=== PATIENT | female | born 1945 | race Caucasian/White ===

== ENCOUNTER 2018-08-10 07:57 | Inpatient (IN) | payer MEDICARE ==
[2018-08-10] VITALS (11 sets, daily range): BP systolic 97–124; BP diastolic 54–75
[~2018-08-10] VITALS: Ht 154.9 cm; Wt 57.9 kg
--- NOTE | ~2018-08-10 | EKG ---
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
--- NOTE | ~2018-08-10 | CON ---
[place], [place] REPORT OF CONSULTATION NAME: LUIS F LEO UNIT #: [id number] ROOM: 424 DOCTOR: MESHA MCDONNELL MD BIRTHDATE: [birth year] DOS: 08/10/2018 CARDIOLOGY CONSULTATION REASON FOR CONSULTATION: Chest discomfort and rapid heartbeat. HISTORY OF PRESENT ILLNESS: The patient is a 73-year-old woman who has not seen a physician in some time. She was in her normal state of health until about a week ago when she developed a viral syndrome. She was troubled by muscle aches, fevers, chills, cough, and dyspnea. This improved, but over the last few days, she has noticed swelling in her ankles. Last evening, she had chest discomfort associated with a racing sensation in her chest. Family members found out about it early this morning and brought her to the hospital. She was found to be in atrial fibrillation with a rapid ventricular response. She was placed on Lovenox for stroke prophylaxis as well as diltiazem for rate control, admitted, and Cardiology was consulted. The patient denies any history of hypertension, diabetes, heart attack, stroke, or rheumatic fever. She has never had a heart murmur. She does admit to dyspnea with exertion and symptoms of emphysema. She is a long-term smoker and continues to smoke about 1 pack of cigarettes a day. PAST MEDICAL HISTORY: Includes: 1. Long-term and ongoing cigarette abuse. 2. COPD. 3. No history of hypertension, diabetes, heart attack, or stroke. MEDICATIONS PRIOR TO ADMISSION: The patient was on no prescribed medications prior to admission. She does use an occasional albuterol inhaler. ALLERGIES: SHE LISTS ALLERGIES TO PENICILLINS AND DIAZEPAM. REVIEW OF SYSTEMS: The patient denies diplopia or loss of vision. She denies lightheadedness or syncope. She denies focal weakness. She denies orthopnea or PND. She has had fevers and chills lately, which she attributed to a viral syndrome. She denies nausea or vomiting, but she did have some nausea last week. She denies hemoptysis or hematemesis. She denies change in her bowel or bladder habits. Denies blood in her stools or urine. She has had swelling in her legs for the last few days. She denies cramping in her legs when she walks. She denies polyuria or polydipsia. The remainder of the review of systems is negative except as noted above. SOCIAL HISTORY: The patient is a . She lives alone with her 4 dogs. She does smoke a pack of cigarettes a day and does not consume excessive amounts of alcohol. PHYSICAL EXAMINATION: GENERAL: The patient is a well-nourished white woman who is awake, alert and oriented. VITAL SIGNS: Pulse is 80 and irregularly irregular. Blood pressure is 122/70. [place], [place] REPORT OF CONSULTATION NAME: LUIS F LEO UNIT #: [id number] ROOM: 424 DOCTOR: MESHA MCDONNELL MD BIRTHDATE: [birth year] She is afebrile. She weighs 57.9 kg and has a body mass index of 24.1. HEENT: Normocephalic and atraumatic. Extraocular muscles are intact. Sclerae are clear. Pupils equal, round and reactive to light. The oral mucosa is moist. Tongue is midline. NECK: Supple. She has no jugular distention. Carotids are full. She has no bruits. She has no neck or supraclavicular masses and no thyromegaly. LUNGS: Respirations were unlabored. She does have decreased breath sounds at the bases with expiratory prolongation bilaterally. She has no presacral edema or chest wall tenderness. CARDIOVASCULAR: Her heart has an irregularly irregular rhythm without murmurs, rubs or gallops. The PMI is not displaced. There is no precordial heave, lift, or thrill. ABDOMEN: Soft and normoactive. She has no mass, organomegaly, or bruits. EXTREMITIES: Showed no clubbing, cyanosis, or edema. Peripheral pulses are palpable in the feet bilaterally. LABORATORY DATA: I reviewed her electrocardiogram, which shows atrial fibrillation with a rapid ventricular response. She has nonspecific ST and T-wave changes, but no acute ST elevations. Serial troponins have been negative thus far. Hemoglobin is 12.5, white count is 9700, platelet count is 282,000. INR is 1.0. Sodium is 142, potassium 3.5, CO2 of 25, BUN 9, and creatinine 0.73. IMPRESSIONS: 1. Newly documented atrial fibrillation. It is likely that her chest discomfort is due to the tachycardia. Thus far, she shows no signs of an acute myocardial infarction by electrocardiographic or chemical criteria. 2. Long-term and ongoing cigarette abuse. 3. Diastolic heart failure with peripheral edema, probably brought on by her newly documented atrial fibrillation. PLAN: We will switch her from Lovenox to rivaroxaban and switch her from IV diltiazem to oral diltiazem. I will be getting an echocardiogram. We might consider doing a pharmacologic stress test next week, especially given her presenting chest pain. If her echo looks good, this might be done as an outpatient. Further recommendations will depend upon her response to therapy and the results of her studies. I thank the hospitalist physicians for asking our advice regarding her care. [place], [place] REPORT OF CONSULTATION NAME: LUIS F LEO UNIT #: [id number] ROOM: [facility] DOCTOR: MESHA MCDONNELL MD BIRTHDATE: [birth year] MESHA MCDONNELL MD CM:CONSTR:REPORT OF CONSULTATION 1123 08/10/18 2212 interface
--- NOTE | ~2018-08-10 | ST ---
[place], [place] EXERCISE STRESS TEST REPORT NAME: LUIS F LEO UNIT #: [id number] ROOM: 424 DOCTOR: ADE SAENZ MD BIRTHDATE: [birth year] DOS: 08/13/2018 LEXISCAN STRESS EKG REFERRING PHYSICIAN: Dr. Sánchez. INDICATION: Precordial chest pain. The patient underwent standard protocol Lexiscan stress EKG. The patient's baseline EKG is atrial fibrillation with a heart rate of 106 with blood pressure 122/62. The patient's peak heart rate was 138 with a blood pressure of 110/66. The patient had no chest pain, no EKG changes, no arrhythmias aside from her baseline AFib. SUMMARY OF FINDINGS: Unremarkable Lexiscan stress EKG. Please see separate report for perfusion scan results. ADE SAENZ MD CM:STRESS:EXERCISE STRESS TEST REPORT [id number] ADE SAENZ MD
[~2018-08-10 07:57] MED LIST: CLARITIN10 MG PO; EPI EZ PEN1 MG/ML IM; KEFLEX500 MG PO; LEVOFLOXACIN500 MG PO; MOTRIN800 MG PO
[2018-08-10 08:25] LABS: BASO % 0.1 % (0.0-1.0); HEMATOCRIT 37.5 % (37.0-47.0); HEMOGLOBIN 12.5 g/dl (12.0-16.0); LYMPH # 0.9 10*3/uL (1.3-4.4); LYMPH % 8.9 % (27.0-41.0); MEAN CELL VOLUME 101.1 fl (81.0-99.0); MEAN CORPUSCULAR HGB 33.7 pg (27.0-31.0); MEAN CORPUSCULAR HGB CONC 33.3 g/dl (33.0-37.0); MEAN PLATELET VOLUME 9.5 fl (9.6-12.3); MONO # 0.4 10*3/uL (0.1-1.0); NEUT # 8.3 10*3/uL (2.3-7.9); NEUT % 85.7 % (47.0-73.0); PLATELET COUNT AUTOMATED 282 10*3/uL (130-400); RED BLOOD COUNT 3.71 10*6/uL (4.10-5.10); RED CELL DISTRI WIDTH 12.9 % (0-14.5); WHITE BLOOD COUNT 9.7 10*3/uL (4.8-10.8)
[2018-08-10 08:34] LABS: ACT PARTIAL THROMBO TIME 21.5 SECONDS (20.8-31.5)
[2018-08-10 08:40] LABS: ALBUMIN 3.2 gm/dl (3.1-4.5); ALKALINE PHOSPHATASE 101 U/L (45-117); BUN 9 mg/dl (7-24); CHLORIDE 109 mmol/L (98-107); CREATININE 0.73 mg/dL (0.55-1.02); LIPASE 109 U/L (73-393); POTASSIUM 3.5 mmol/L (3.5-5.1); SGOT/AST 37 IU/L (3-35); SGPT/ALT 66 U/L (12-78); SODIUM 142 mmol/L (136-145); TOTAL PROTEIN 6.8 gm/dL (6.4-8.2)
[2018-08-10 08:42] LABS: TROPONIN I < 0.015 ng/ml (<0.045)
[2018-08-10 09:59] LABS: FREE T4 1.09 ng/dl (0.76-1.46)
[2018-08-10 10:04] LABS: THYROID STIM HORMONE (HS) 0.707 uIU/ml (0.358-4.75)
[2018-08-10] MEDS ORDERED: Ventolin 02.5 MG/3 M INH (10:35)
[2018-08-11] VITALS (10 sets, daily range): BP systolic 90–116; BP diastolic 38–94
[2018-08-11 06:17] LABS: BASO % 0.3 % (0.0-1.0); EOS # 0.1 10*3/uL (0.0-0.4); EOS % 0.8 % (1.0-4.0); HEMATOCRIT 35.7 % (37.0-47.0); HEMOGLOBIN 11.5 g/dl (12.0-16.0); LYMPH # 2.3 10*3/uL (1.3-4.4); LYMPH % 25.1 % (27.0-41.0); MEAN CELL VOLUME 102.6 fl (81.0-99.0); MEAN CORPUSCULAR HGB CONC 32.2 g/dl (33.0-37.0); MEAN PLATELET VOLUME 9.6 fl (9.6-12.3); MONO # 0.7 10*3/uL (0.1-1.0); MONO % 7.5 % (3.0-9.0); NEUT % 65.8 % (47.0-73.0); PLATELET COUNT AUTOMATED 251 10*3/uL (130-400); RED BLOOD COUNT 3.48 10*6/uL (4.10-5.10); RED CELL DISTRI WIDTH 13.2 % (0-14.5); WHITE BLOOD COUNT 9.1 10*3/uL (4.8-10.8)
[2018-08-11 06:39] LABS: ALBUMIN 2.6 gm/dl (3.1-4.5); ALKALINE PHOSPHATASE 86 U/L (45-117); BUN 11 mg/dl (7-24); CHLORIDE 111 mmol/L (98-107); CHOLESTEROL 130 mg/dL (<200); CREATININE 0.62 mg/dL (0.55-1.02); HDL CHOLESTEROL 57 mg/dl (40-60); LDL CHOLESTEROL 54 mg/dL (9-159); PHOSPHOROUS 2.4 mg/dL (2.5-4.9); POTASSIUM 3.7 mmol/L (3.5-5.1); SGOT/AST 30 IU/L (3-35); SGPT/ALT 58 U/L (12-78); SODIUM 145 mmol/L (136-145); TOTAL PROTEIN 5.8 gm/dL (6.4-8.2); TRIGLYCERIDES 94 mg/dl (<150); VLDL CHOLESTEROL 19 mg/dL (6-40)
[2018-08-11 08:00] LABS: VITAMIN D, 25-HYDROXY 19.7 ng/mL (30-100)
[2018-08-11 13:20] LABS: BILIRUBIN NEGATIVE (NEGATIVE); BLOOD NEGATIVE (NEGATIVE); CLARITY CLEAR (CLEAR); COLOR YELLOW (YELLOW); GLUCOSE NEGATIVE (NEGATIVE); KETONE NEGATIVE (NEGATIVE); LEUKO ESTERASE NEGATIVE (NEGATIVE); NITRITE NEGATIVE (NEGATIVE); PH 7.5 (5.0-9.0); SPECIFIC GRAVITY <= 1.005 (1.005-1.030); UROBILINOGEN 0.2 E.U./dl (0.2-1.0)
[2018-08-12] VITALS: BP 94/51
[2018-08-12 06:08] LABS: BASO % 0.3 % (0.0-1.0); EOS # 0.1 10*3/uL (0.0-0.4); EOS % 0.7 % (1.0-4.0); HEMATOCRIT 36.7 % (37.0-47.0); HEMOGLOBIN 11.9 g/dl (12.0-16.0); LYMPH # 2.4 10*3/uL (1.3-4.4); LYMPH % 24.8 % (27.0-41.0); MEAN CORPUSCULAR HGB 33.7 pg (27.0-31.0); MEAN CORPUSCULAR HGB CONC 32.4 g/dl (33.0-37.0); MONO # 0.8 10*3/uL (0.1-1.0); MONO % 8.4 % (3.0-9.0); NEUT # 6.4 10*3/uL (2.3-7.9); NEUT % 65.3 % (47.0-73.0); PLATELET COUNT AUTOMATED 248 10*3/uL (130-400); RED BLOOD COUNT 3.53 10*6/uL (4.10-5.10); RED CELL DISTRI WIDTH 13.3 % (0-14.5); WHITE BLOOD COUNT 9.8 10*3/uL (4.8-10.8)
[2018-08-12 06:12] LABS: BUN 10 mg/dl (7-24); CHLORIDE 109 mmol/L (98-107); CREATININE 0.71 mg/dL (0.55-1.02); PHOSPHOROUS 3.1 mg/dL (2.5-4.9); POTASSIUM 3.9 mmol/L (3.5-5.1); SODIUM 142 mmol/L (136-145)
[2018-08-12 12:00] VITALS: BP 100/57
[2018-08-12 14:00] VITALS: BP 102/56
[2018-08-12 16:00] VITALS: BP 109/49
[2018-08-12 20:00] VITALS: BP 102/62
[2018-08-13] VITALS: BP 107/68
[2018-08-13 06:34] LABS: BASO % 0.5 % (0.0-1.0); EOS # 0.1 10*3/uL (0.0-0.4); EOS % 0.9 % (1.0-4.0); HEMOGLOBIN 11.9 g/dl (12.0-16.0); LYMPH # 2.2 10*3/uL (1.3-4.4); LYMPH % 26.3 % (27.0-41.0); MEAN CELL VOLUME 103.1 fl (81.0-99.0); MEAN CORPUSCULAR HGB 33.1 pg (27.0-31.0); MEAN CORPUSCULAR HGB CONC 32.2 g/dl (33.0-37.0); MONO # 0.7 10*3/uL (0.1-1.0); MONO % 8.7 % (3.0-9.0); NEUT # 5.4 10*3/uL (2.3-7.9); PLATELET COUNT AUTOMATED 252 10*3/uL (130-400); RED BLOOD COUNT 3.59 10*6/uL (4.10-5.10); RED CELL DISTRI WIDTH 13.2 % (0-14.5); WHITE BLOOD COUNT 8.5 10*3/uL (4.8-10.8)
[2018-08-13 06:54] LABS: BUN 15 mg/dl (7-24); CHLORIDE 111 mmol/L (98-107); CREATININE 0.74 mg/dL (0.55-1.02); POTASSIUM 3.9 mmol/L (3.5-5.1); SODIUM 144 mmol/L (136-145)
[2018-08-13 08:00] VITALS: BP 110/74
[2018-08-13 16:00] VITALS: BP 86/52
[2018-08-13] MEDS ORDERED: TOPROL XL50 M1 PO (16:32)
[2018-08-13] MEDS ORDERED: DILTIAZEM HYDR180 M2 PO (16:32)
[2018-08-13] MEDS ORDERED: XARE20MG PO (16:32)
[2018-08-13] MEDS ORDERED: VITAMIN D5000 UNI1 PO (16:32)
== END 2018-08-13 17:28 | disposition home or self-care (01) | DRG 308 ==
LOC: ED 07:57 → 4E 09:19 → EDHOLD 09:19 → 4E 10:06
PROVIDERS: Emergency Medicine; Internal Medicine
PROC: 3E073KZ Introduction of Other Diagnostic Substance into Coronary Artery, Percutaneous Approach (ICD-10-PCS; principal; 2018-08-13)
PROC: 4A02XM4 Measurement of Cardiac Total Activity, External Approach (ICD-10-PCS; principal; 2018-08-13)
DX: I48.91 Unspecified atrial fibrillation (principal); E43 Unspecified severe protein-calorie malnutrition; R65.10 Systemic inflammatory response syndrome (SIRS) of non-infectious origin without acute organ dysfunction; E87.2 Acidosis; I50.30 Unspecified diastolic (congestive) heart failure; I48.92 Unspecified atrial flutter; I07.1 Rheumatic tricuspid insufficiency; I27.20 Pulmonary hypertension, unspecified; D75.89 Other specified diseases of blood and blood-forming organs; D72.810 Lymphocytopenia; Z66 Do not resuscitate; Z51.5 Encounter for palliative care; F17.210 Nicotine dependence, cigarettes, uncomplicated; D72.89 Other specified disorders of white blood cells; D53.9 Nutritional anemia, unspecified; E87.8 Other disorders of electrolyte and fluid balance, not elsewhere classified; E83.39 Other disorders of phosphorus metabolism; R73.9 Hyperglycemia, unspecified; E83.41 Hypermagnesemia; R74.0 Nonspecific elevation of levels of transaminase and lactic acid dehydrogenase [LDH]; J43.9 Emphysema, unspecified; Z90.49 Acquired absence of other specified parts of digestive tract; Z90.710 Acquired absence of both cervix and uterus; Z84.89 Family history of other specified conditions; Z88.0 Allergy status to penicillin; Z88.8 Allergy status to other drugs, medicaments and biological substances; Z68.24 Body mass index [BMI] 24.0-24.9, adult

== ENCOUNTER → 2018-08-31 | Outpatient (CLI) | payer MEDICARE ==
[~2018-08-31] MED LIST changes: +DILTIAZEM HYDR180 M2 PO; +TOPROL XL50 M1 PO; +VITAMIN D5000 UNI1 PO; +Ventolin 02.5 MG/3 M INH; +XARE20MG PO
== END | disposition home or self-care (01) ==
LOC: RESCLI 03:59
DX: Z09 Encounter for follow-up examination after completed treatment for conditions other than malignant neoplasm (principal); I48.91 Unspecified atrial fibrillation; J44.9 Chronic obstructive pulmonary disease, unspecified; E55.9 Vitamin D deficiency, unspecified; I50.30 Unspecified diastolic (congestive) heart failure; F17.210 Nicotine dependence, cigarettes, uncomplicated; Z71.6 Tobacco abuse counseling; Z76.89 Persons encountering health services in other specified circumstances; Z79.899 Other long term (current) drug therapy; Z90.49 Acquired absence of other specified parts of digestive tract; Z88.8 Allergy status to other drugs, medicaments and biological substances; Z90.710 Acquired absence of both cervix and uterus

== ENCOUNTER → 2018-09-18 | Outpatient (CLI) | payer MEDICARE ==
[2018-09-18 17:17] LABS: BUN 12 mg/dl (7-24); CHLORIDE 108 mmol/L (98-107); CREATININE 0.78 mg/dL (0.55-1.02); POTASSIUM 4.3 mmol/L (3.5-5.1); SODIUM 141 mmol/L (136-145)
== END | disposition home or self-care (01) ==
LOC: LAB 16:19
PROVIDERS: Student in an Organized Health Care Education/Training Program
DX: I50.30 Unspecified diastolic (congestive) heart failure (principal)

== ENCOUNTER → 2018-10-02 | Outpatient (CLI) | payer MEDICARE ==
[2018-10-02 11:39] LABS: BUN 12 mg/dl (7-24); CHLORIDE 107 mmol/L (98-107); POTASSIUM 4.1 mmol/L (3.5-5.1); SODIUM 142 mmol/L (136-145)
== END | disposition home or self-care (01) ==
LOC: RESCLI 01:52
PROVIDERS: Student in an Organized Health Care Education/Training Program
DX: I48.91 Unspecified atrial fibrillation (principal); J44.9 Chronic obstructive pulmonary disease, unspecified; E55.9 Vitamin D deficiency, unspecified; I50.30 Unspecified diastolic (congestive) heart failure; F17.200 Nicotine dependence, unspecified, uncomplicated; Z71.6 Tobacco abuse counseling; Z79.899 Other long term (current) drug therapy; Z79.82 Long term (current) use of aspirin; Z88.8 Allergy status to other drugs, medicaments and biological substances; Z90.49 Acquired absence of other specified parts of digestive tract; Z90.710 Acquired absence of both cervix and uterus

== ENCOUNTER → 2018-12-11 | Outpatient (CLI) | payer MEDICARE ==
[~2018-12-11] MED LIST changes: +AMMONIUM LACTA227 GM T; +ASPIRIN ADULT L81 M1 PO; +CARTIA XT120 MG PO; +DIGITEK125 MCG PO; +DOXYCYCLINE100 M3 PO; +FUROSEMIDE20 M1 PO; +KLOR-CON M1010 ME1 PO; +LEVAQUIN750 M1 PO; +METOPROLOL SUCC25 M2 PO; +PREDNISONE10 MG PO
== END | disposition home or self-care (01) ==
LOC: RESCLI 02:27
DX: Z09 Encounter for follow-up examination after completed treatment for conditions other than malignant neoplasm (principal); I48.91 Unspecified atrial fibrillation; J44.9 Chronic obstructive pulmonary disease, unspecified; E55.9 Vitamin D deficiency, unspecified; I50.30 Unspecified diastolic (congestive) heart failure; F17.200 Nicotine dependence, unspecified, uncomplicated; Z71.6 Tobacco abuse counseling; Z79.899 Other long term (current) drug therapy; Z88.8 Allergy status to other drugs, medicaments and biological substances; Z79.82 Long term (current) use of aspirin

== ENCOUNTER → 2018-12-21 | Outpatient (CLI) | payer MEDICARE | END | disposition home or self-care (01) | LOC: RESCLI 02:45 | DX: I48.91 Unspecified atrial fibrillation (principal); J44.9 Chronic obstructive pulmonary disease, unspecified; E55.9 Vitamin D deficiency, unspecified; I50.30 Unspecified diastolic (congestive) heart failure; Z72.0 Tobacco use; Z79.899 Other long term (current) drug therapy ==

== ENCOUNTER → 2019-01-03 | Outpatient (CLI) | payer MEDICARE | END | disposition home or self-care (01) | LOC: CT 09:49 | DX: J43.2 Centrilobular emphysema (principal); R91.8 Other nonspecific abnormal finding of lung field; I51.7 Cardiomegaly; I70.0 Atherosclerosis of aorta; I27.21 Secondary pulmonary arterial hypertension; N28.1 Cyst of kidney, acquired; J84.10 Pulmonary fibrosis, unspecified; D73.89 Other diseases of spleen ==

== ENCOUNTER → 2019-03-19 | Outpatient (CLI) | payer MEDICARE | END | disposition home or self-care (01) | LOC: RESCLI 13:57 | DX: J44.9 Chronic obstructive pulmonary disease, unspecified (principal); E55.9 Vitamin D deficiency, unspecified; I48.91 Unspecified atrial fibrillation; I50.30 Unspecified diastolic (congestive) heart failure; E11.9 Type 2 diabetes mellitus without complications; Z71.6 Tobacco abuse counseling; Z87.891 Personal history of nicotine dependence; Z79.899 Other long term (current) drug therapy ==

== ENCOUNTER → 2019-03-29 | Outpatient (CLI) | payer MEDICARE ==
[2019-03-29 12:13] LABS: ALBUMIN 3.1 gm/dl (3.1-4.5); ALKALINE PHOSPHATASE 161 U/L (45-117); BUN 17 mg/dl (7-24); CHLORIDE 102 mmol/L (98-107); CREATININE 0.82 mg/dL (0.55-1.02); POTASSIUM 3.6 mmol/L (3.5-5.1); SGOT/AST 20 IU/L (3-35); SGPT/ALT 21 U/L (12-78); SODIUM 137 mmol/L (136-145); TOTAL PROTEIN 7.3 gm/dL (6.4-8.2)
[2019-04-03 09:50] LABS: CREATININE,URINE 78.1 mg/dL (Not Estab.); MICRO ALBUMIN/CRE RATIO 24.5 (0.0-30.0)
== END | disposition home or self-care (01) ==
LOC: RESCLI 02:03 → LAB 02:03 → RESCLI 08:40
PROVIDERS: Internal Medicine; Student in an Organized Health Care Education/Training Program
DX: E11.9 Type 2 diabetes mellitus without complications (principal)

== ENCOUNTER → 2019-05-16 | Outpatient (CLI) | payer MEDICARE ==
[2019-05-16 16:37] LABS: ALBUMIN 3.4 gm/dl (3.1-4.5); ALKALINE PHOSPHATASE 136 U/L (45-117); BUN 16 mg/dl (7-24); CHLORIDE 101 mmol/L (98-107); PHOSPHOROUS 5.1 mg/dL (2.5-4.9); POTASSIUM 4.2 mmol/L (3.5-5.1); SGOT/AST 12 IU/L (3-35); SGPT/ALT 17 U/L (12-78); SODIUM 137 mmol/L (136-145); TOTAL PROTEIN 7.5 gm/dL (6.4-8.2)
== END | disposition home or self-care (01) ==
LOC: RESCLI 01:47
PROVIDERS: Internal Medicine
DX: Z12.11 Encounter for screening for malignant neoplasm of colon (principal); I48.91 Unspecified atrial fibrillation; J44.9 Chronic obstructive pulmonary disease, unspecified; E55.9 Vitamin D deficiency, unspecified; I50.30 Unspecified diastolic (congestive) heart failure; E11.9 Type 2 diabetes mellitus without complications; Z71.6 Tobacco abuse counseling; Z72.0 Tobacco use; Z79.899 Other long term (current) drug therapy; Z88.8 Allergy status to other drugs, medicaments and biological substances

== ENCOUNTER 2019-06-15 23:20 | Inpatient (IN) | payer MEDICARE ==
[~2019-06-15] VITALS: Ht 154.9 cm; Wt 47.7 kg
[2019-06-15 23:20] VITALS: BP 107/38
[2019-06-16] VITALS (16 sets, daily range): BP systolic 92–106; BP diastolic 28–56
[2019-06-16 00:13] LABS: HEMATOCRIT 22.5 % (37.0-47.0); MEAN CELL VOLUME 73.8 fl (81.0-99.0); MEAN CORPUSCULAR HGB 20.3 pg (27.0-31.0); MEAN CORPUSCULAR HGB CONC 27.6 g/dl (33.0-37.0); MEAN PLATELET VOLUME 9.7 fl (9.6-12.3); PLATELET COUNT AUTOMATED 272 10*3/uL (130-400); RED BLOOD COUNT 3.05 10*6/uL (4.10-5.10); RED CELL DISTRI WIDTH 17.1 % (0-14.5); WHITE BLOOD COUNT 12.1 10*3/uL (4.8-10.8)
[2019-06-16 00:22] LABS: HEMOGLOBIN 6.2 g/dl (12.0-16.0)
--- NOTE | 2019-06-16 00:23 | NUR ---
CRITICAL LAB RECEIVED FROM LAB HEMOGLOBIN 6.2, QUESTIONED DOCUMENTS EXAMINER MADE AWARE
[2019-06-16 00:27] LABS: INTERNATIONAL NORM RATIO 1.2 (2.0-3.5)
[2019-06-16 00:43] LABS: BASOPHILS 1 % (0-1); MICROCYTOSIS MODERATE; PLATELET SUFFICIENCY NORMAL (NORMAL); TOTAL CELLS COUNTED 100 #CELLS
[2019-06-16 01:16] LABS: ALBUMIN 3.3 gm/dl (3.1-4.5); ALKALINE PHOSPHATASE 129 U/L (45-117); BUN 15 mg/dl (7-24); CHLORIDE 100 mmol/L (98-107); CREATININE 0.79 mg/dL (0.55-1.02); POTASSIUM 3.8 mmol/L (3.5-5.1); SGOT/AST 12 IU/L (3-35); SGPT/ALT 14 U/L (12-78); SODIUM 133 mmol/L (136-145); TOTAL PROTEIN 7.3 gm/dL (6.4-8.2)
--- NOTE | 2019-06-16 01:55 | NUR ---
POSITIVE HEMACULT TEST FROM STOOL SPECIMAN
--- NOTE | 2019-06-16 02:40 | NUR ---
A 74, admitted to , under the services of TAWANNA Barillas DO with a diagnosis of GI BLEED,DYSPNEA. Chief complaint is SWELLING AND PAIN TO LEFT FOOT. Patient arrived via bed from ER. Monitor applied. Initial assessment completed. Vital signs taken and recorded. TAWANNA BARILLAS DO notified of admission to the unit. Orders received. See assessment for past medical history, medications and allergies. Patient and/or family oriented to unit. [facility] visitation policy reviewed. Clothing/patient valuable form completed. MITCHELL CASE
[2019-06-16] MEDS ORDERED: CARDIZEM CD180 MG PO (02:57)
[2019-06-16] MEDS ORDERED: GLUCOPHAGE500 M1 PO (02:57)
[2019-06-16] MEDS ORDERED: ALDACTONE25 MG PO (02:58)
--- NOTE | 2019-06-16 03:30 | NUR ---
BLOOD TRANSFUSION INITIATED AT THIS TIME. ALL APPROPRIATE CHECKS HAVE TAKEN PLACE AND WITNESSED BY SECOND RN. PT IV SITE TO LEFT ANTECUBITAL FLUSHING WITH EASE, GOOD BLOOD RETURN. DRESSING C/D/I.
--- NOTE | 2019-06-16 04:06 | NUR ---
PT TOLERATING TRANSFUSION WELL, NO COMPLAINTS VOICED. VITALS WNL FOR PATIENT.
--- NOTE | 2019-06-16 04:15 | NUR ---
MED REC UPDATED PER PT AND PER PATIENT'S HOME MEDICATION BOTTLES.
[2019-06-16 05:27] LABS: BILIRUBIN NEGATIVE (NEGATIVE); BLOOD 1+ (NEGATIVE); CLARITY SL CLOUDY (CLEAR); COLOR YELLOW (YELLOW); GLUCOSE NEGATIVE (NEGATIVE); KETONE NEGATIVE (NEGATIVE); LEUKO ESTERASE 3+ (NEGATIVE); NITRITE POSITIVE (NEGATIVE); UROBILINOGEN 0.2 E.U./dl (0.2-1.0)
[2019-06-16 05:40] LABS: WBC TNTC wbc/hpf (0-5)
[2019-06-16 05:41] LABS: BACTERIA 4+; RBC 21-30 rbc/hpf (0-2)
--- NOTE | 2019-06-16 06:31 | NUR ---
BLOOD TRANSFUSION COMPLETE AT THIS TIME. PT RESTING IN BED. EASILY AROUSED. RESPIRATIONS EASY AND UNALBORED ON ROOM AIR. VITALS OBTAINED AND WNL. NO S/S OF REACTIONS NOTED. PT COMPLAINS OF NOTHING. ALL SAFETY MEASURES IN PLACE. CALL LIGHT IN REACH.
--- NOTE | 2019-06-16 07:00 | NUR ---
BEDSIDE REPORT RECEIVED FROM MITCHELL WONG. NO PT COMPLAINTS/CONCERNS AT THIS TIME. BED LOW. CALL TRUONG IN REACH
--- NOTE | 2019-06-16 07:42 | NUR ---
SPOKE WITH DR SMALLWOOD REGARDING CONSULT. PHYSICIAN STATES THAT HE WILL SEE PATIENT SOMETIME THIS AFTERNOON. ORDERS RECEIVED TO PUT PATIENT ON CLEAR LIQUID DIET AND TO GIVE AN ADDITIONAL UNIT OF BLOOD IF NEXT HEMOGLOBIN THAT IS DRAWN IS LESS THAN 8. PHYSICIAN STATES THAT HE PLANS TO SCOPE PATIENT, BUT NOT TODAY. PHYSICIAN STATES THAT HE WILL PLACE BOWEL PREP ORDERS IN WHEN HE COMES IN TO SEE PATIENT. WILL UPDATE AM NURSE.
[2019-06-16 08:43] LABS: BASO % 0.2 % (0.0-1.0); EOS % 0.4 % (1.0-4.0); HEMATOCRIT 25.7 % (37.0-47.0); HEMOGLOBIN 7.4 g/dl (12.0-16.0); LYMPH # 1.4 10*3/uL (1.3-4.4); LYMPH % 13.9 % (27.0-41.0); MEAN CELL VOLUME 75.1 fl (81.0-99.0); MEAN CORPUSCULAR HGB 21.6 pg (27.0-31.0); MEAN CORPUSCULAR HGB CONC 28.8 g/dl (33.0-37.0); MEAN PLATELET VOLUME 9.1 fl (9.6-12.3); MONO # 1.2 10*3/uL (0.1-1.0); MONO % 11.6 % (3.0-9.0); NEUT # 7.4 10*3/uL (2.3-7.9); NEUT % 73.4 % (47.0-73.0); PLATELET COUNT AUTOMATED 213 10*3/uL (130-400); RED BLOOD COUNT 3.42 10*6/uL (4.10-5.10); WHITE BLOOD COUNT 10.1 10*3/uL (4.8-10.8)
--- NOTE | 2019-06-16 11:00 | NUR ---
PT AWAKE. BLOOD TRANSFUSION INITIATED. PT RECEIVING 2ND UNIT OF PRBC. VITALS WNL.
--- NOTE | 2019-06-16 12:55 | NUR ---
BLOOD TRANSFUSION COMPLETED AT THIS TIME. PATIENT HAS NO COMPLAINTS.
--- NOTE | 2019-06-16 16:25 | NUR ---
INFORMED OF MANUAL BP 92/28, PATIENT ASYMPTOMATIC STATING "IM USE TO IT". INFORMED OF MEDICATIONS THAT WERE GIVEN THIS AM AND WHAT IS DUE TONIGHT. STATED TO RE-EVALUATE BEFORE NIGHT TIME DOSE OF TOPROL.
--- NOTE | 2019-06-16 16:35 | NUR ---
CALLED BACK AND STATED TO RECHECK BP IN 10 MINUTES
[2019-06-16 16:43] LABS: HEMATOCRIT 30.5 % (37.0-47.0); HEMOGLOBIN 9.2 g/dl (12.0-16.0)
--- NOTE | 2019-06-16 16:45 | NUR ---
INFORMED THAT PATIENT BP 96/30 MANUAL. PATIENT IS STILL ASYMPTOMATIC, STATES " TWO DAYS AGO AT HOME MY BLOOD PRESSURE WAS 78/44 AND THATS WHEN I STARTED TO GET DIZZY. I DON'T FEEL ANYTHING LIKE THAT NOW." DR STATED OK.
--- NOTE | 2019-06-16 17:53 | NUR ---
AVAILABLE AT THIS TIME. MADE AWARE OF POSITIVE ORTHOS. STATED OK.
--- NOTE | 2019-06-16 20:55 | NUR ---
NIGHT TIME DOSE OF TOPROL WILL BE HELD D/T LOW BLOOD PRESSURE.
--- NOTE | 2019-06-16 23:00 | NUR ---
REPORT RECEIVED FROM DAYLIGHT NURSE. PT SLEEPING AT THIS TIME. NO SIGNS OF DISTRESS. CALL LIGHT IN REACH.
--- NOTE | 2019-06-16 23:50 | NUR ---
24 HR chart check completed.
[2019-06-17] VITALS (7 sets, daily range): BP systolic 103–111; BP diastolic 49–60
--- NOTE | 2019-06-17 | NUR ---
PT MEDICATED WITH TYLENOL FOR COMPLAINTS OF 9/10 HEADACHE. PT REFUSING ORTHOS AT THIS TIME. PT STATES "MAYBE LATER"
--- NOTE | 2019-06-17 01:00 | NUR ---
PER PT, TYLENOL EFFECTIVE
[2019-06-17 05:43] LABS: BUN 7 mg/dl (7-24); CHLORIDE 104 mmol/L (98-107); CREATININE 0.52 mg/dL (0.55-1.02); PHOSPHOROUS 2.6 mg/dL (2.5-4.9); POTASSIUM 3.3 mmol/L (3.5-5.1); SODIUM 138 mmol/L (136-145)
[2019-06-17 06:06] LABS: HEMATOCRIT 31.2 % (37.0-47.0); HEMOGLOBIN 9.3 g/dl (12.0-16.0); MEAN CELL VOLUME 76.1 fl (81.0-99.0); MEAN CORPUSCULAR HGB 22.7 pg (27.0-31.0); MEAN CORPUSCULAR HGB CONC 29.8 g/dl (33.0-37.0); MEAN PLATELET VOLUME 9.7 fl (9.6-12.3); PLATELET COUNT AUTOMATED 236 10*3/uL (130-400); RED CELL DISTRI WIDTH 17.7 % (0-14.5)
--- NOTE | 2019-06-17 06:21 | NUR ---
HOLD K-DUR UNTIL AFTER EGD PER DR. PISANO.
[2019-06-17 06:54] LABS: BASOPHILS 1 % (0-1); PLATELET SUFFICIENCY NORMAL (NORMAL); POLYCHROMASIA SLIGHT; TOTAL CELLS COUNTED 100 #CELLS
[2019-06-17 06:55] LABS: ACANTHOCYTES FEW; MICROCYTOSIS MODERATE; OVALOCYTES FEW; SCHISTOCYTES FEW; TARGET CELLS FEW
--- NOTE | 2019-06-17 07:59 | NUR ---
PT LEAVES FLOOR FOR EGD, DAUGHTER CALLED AND NOTIFIED.
--- NOTE | 2019-06-17 09:00 | NUR ---
case management attempted to visit with patient, patient out of room for testing, will visit later today
--- NOTE | 2019-06-17 23:30 | NUR ---
PATIENT WATCHING TV IN BED. PATIENT STILL HAVING BROWN BM WITH SMALL AMOUNT OF FORMED STOOL. EDUCATED PATIENT WE WOULD BE MONITORING BM OVER NIGHT AND IF THEY DO NOT START TO CLEAR WE MAY HAVE TO CALL THE DOCTOR FOR ENEMAS. PATIENT STATED UNDERSTANDING. CALL LIGHT WITHIN REACH.
[2019-06-18] VITALS (11 sets, daily range): BP systolic 91–132; BP diastolic 44–68
--- NOTE | 2019-06-18 02:03 | NUR ---
24 HR chart check completed.
--- NOTE | 2019-06-18 06:15 | NUR ---
NOTIFIED DR. SMALLWOOD THAT PATIENT WAS STILL HAVING BROWN WATERY BM WITH SEDIMENT. DR. SMALLWOOD STATED THAT WAS FINE. NO NEW ORDERS.
--- NOTE | 2019-06-18 09:00 | NUR ---
[employer] in to talk to patient. Patient states lives at home with daughter. There are few steps in the home. Physician: [facility] Home health services: none Patient's level of ADLs: INDEPENDENT Patient has working utilities: all working DME: none Follow-up physician's appointment after d/c: will be made by hospitalist nurse director upon discharge Does patient want to access PORTAL?: no Discharge plan discussed with patient, she lives at home with her daughter, she states she is independent in adls and ambulation, drives, she states she will return home when medically stable and denies any home needs, case managment will follow. NICHOLE DERAS
--- NOTE | 2019-06-18 11:08 | NUR ---
Nutritional Support Services Note: Pt is NPO at this time for procedure. Will follow as able. Lisa Castañeda Rdn Ld
--- NOTE | 2019-06-18 11:35 | NUR ---
Another Multi-Disciplinary Team meeting was held on 06/18/19, for the purpose of discharge planning. The patient was referred to the following services for follow-up:patient will return home when stable, no needed home services, patient having a procedure today and possibly discharge home after NICHOLE DERAS
--- NOTE | 2019-06-18 12:24 | NUR ---
PATIENT TO OR FOR COLONOSCOPY.
--- NOTE | 2019-06-18 15:04 | NUR ---
SPEECH PATHOLOGY Orders for swallowing evaluation received and chart review completed. Patient unavailable as she is currently out of room for medical procedure. Will attempt evaluation tomorrow morning. Thank you for this referral. LAMONT HARDY MS [facility] CONSULTANT
--- NOTE | 2019-06-18 15:08 | NUR ---
PATIENT RETURNED FROM COLONOSCOPY, SEE SHIFT ASSESSMENT FOR DETAILS.
--- NOTE | 2019-06-18 16:56 | NUR ---
MEDICATED WITH PRN PO TYLENOL FOR C/O HEADACHE.
[2019-06-19] VITALS: BP 95/53
--- NOTE | 2019-06-19 01:03 | NUR ---
24 HR chart check completed.
--- NOTE | 2019-06-19 02:07 | NUR ---
PATIENT SLEEPING IN BED. RESPIRATIONS EVEN AND UNLABORED. BED IN LOWEST POSITION. CALL LIGHT WITHIN REACH.
[2019-06-19 06:33] LABS: BASO % 0.3 % (0.0-1.0); EOS # 0.1 10*3/uL (0.0-0.4); EOS % 1.5 % (1.0-4.0); HEMATOCRIT 32.7 % (37.0-47.0); HEMOGLOBIN 9.4 g/dl (12.0-16.0); LYMPH # 1.5 10*3/uL (1.3-4.4); MEAN CELL VOLUME 77.1 fl (81.0-99.0); MEAN CORPUSCULAR HGB 22.2 pg (27.0-31.0); MEAN CORPUSCULAR HGB CONC 28.7 g/dl (33.0-37.0); MEAN PLATELET VOLUME 9.8 fl (9.6-12.3); MONO % 12.9 % (3.0-9.0); NEUT # 5.2 10*3/uL (2.3-7.9); NEUT % 65.8 % (47.0-73.0); PLATELET COUNT AUTOMATED 265 10*3/uL (130-400); RED BLOOD COUNT 4.24 10*6/uL (4.10-5.10); RED CELL DISTRI WIDTH 19.4 % (0-14.5); WHITE BLOOD COUNT 7.9 10*3/uL (4.8-10.8)
[2019-06-19 06:45] LABS: ALBUMIN 2.9 gm/dl (3.1-4.5); BUN 4 mg/dl (7-24); CHLORIDE 109 mmol/L (98-107); POTASSIUM 3.5 mmol/L (3.5-5.1); SODIUM 139 mmol/L (136-145)
[2019-06-19 06:48] LABS: ALKALINE PHOSPHATASE 116 U/L (45-117); SGOT/AST 9 IU/L (3-35); SGPT/ALT 11 U/L (12-78); TOTAL PROTEIN 6.7 gm/dL (6.4-8.2)
[2019-06-19 08:06] VITALS: BP 116/60
--- NOTE | 2019-06-19 09:00 | NUR ---
case management visits with patient, she states she will return home when medically stable and denies any home needs
--- NOTE | 2019-06-19 09:50 | NUR ---
Occupational therapy orders received and chart reviewed. Patient admitted for a GI bleed and dyspnea. Patient completed an OT screening- performed lower body dressing, functional mobility, bed and toilet transfers, and basic grooming all independently. Patient noted to be up walking in the room and independent with further ADLs. Patient orders to be discharged at this time secondary to patient not needing OT services. Thank you for the referral. Patient notified of d/c from OT and was agreeable. Jo Ann Chavez, OTR/L
--- NOTE | 2019-06-19 10:27 | NUR ---
Nutritional Support Services Note: Appetite is good for meals. Regular diet as ordered. BMI is 20.6 appropriate wt. Eating 100% of meals. No nutrition intervention needed at this time. Will follow as needed. Lisa Castañeda Rdn Ld
--- NOTE | 2019-06-19 10:40 | NUR ---
PHYSICAL THERAPY Physical therapy screen completed. Pt is independent with ambulation, ADLs and has no safety concerns upon discharge home. No PT needs at this time. Thank you for your referral. Cee Esquivel, PT, DPT.
--- NOTE | 2019-06-19 11:12 | NUR ---
SPEECH PATHOLOGY Clinical swallowing evaluation completed as per orders due to weight loss. Patient's medical history includes GI bleed, dyspnea, DM, generalized weakness, UTI, sepsis, acute respiratory failure with hypoxia, COPD, leukocytosis. She receives a regular diet and thin liquid. Patient was alert and cooperative for assessment. She denied any chewing or swallowing problems. She stated that her appetite had been poor recently due to having thrush, which she felt was the cause of her weight loss. Oral trihealth exam revealed presence of upper dentures with adequate fit reported. Lingua/labial and buccal skills were WNL in terms of strength, ROM and coordination. She was assessed with solid foods and thin liquid during breakfast meal and displayed no overt difficulty with any item. Appropriate use of universal safe swallow precautions was displayed. Recommend patient remain on present diet. No follow up treatment is warranted. Results and marco. were shared with patient and her nurse and they verbalized understanding. [facility] for further information. Thank you for this referral. LAMONT HARDY [facility] ACTOR
[2019-06-19] MEDS ORDERED: CIPRO250 MG PO ×2 (11:29→13:43)
[2019-06-19] MEDS ORDERED: FEOSOL325 MG PO ×2 (11:34→13:43)
[2019-06-19 11:54] VITALS: BP 110/62
--- NOTE | 2019-06-19 13:00 | NUR ---
Discharge instructions reviewed with patient. Patient receptive and verbalizes understanding. Follow-up care arranged. Written instructions given to patient. JOSH DALTON
[2019-06-19] MEDS ORDERED: CARDIZEM CD180 MG PO (13:17)
--- NOTE | 2019-06-19 13:46 | NUR ---
PATIENT DISCHARGED TO [facility], AMBULATORY WITH FAMILY, FOR TRANSPORT HOME BY PRIVATE CAR. PRESCRIPTIONS TO BE PICKED UP IN 3RD FLOOR OUTPATIENT PHARMACY PRIOR TO LEAVING.
== END 2019-06-19 13:46 | disposition home or self-care (01) | DRG 871 ==
LOC: ED 23:20 → 4E 06-16 01:55 → EDHOLD 06-16 01:55 → 4E 06-16 02:10
PROVIDERS: Internal Medicine; Nurse Practitioner Family; Registered Nurse; ADMIT Internal Medicine
PROC: 30233N1 Transfusion of Nonautologous Red Blood Cells into Peripheral Vein, Percutaneous Approach (ICD-10-PCS; principal; 2019-06-16)
PROC: 0DJ08ZZ Inspection of Upper Intestinal Tract, Via Natural or Artificial Opening Endoscopic (ICD-10-PCS; 2019-06-17)
PROC: 0DBN8ZZ Excision of Sigmoid Colon, Via Natural or Artificial Opening Endoscopic (ICD-10-PCS; 2019-06-18)
DX: A41.51 Sepsis due to Escherichia coli [E. coli] (principal); J96.01 Acute respiratory failure with hypoxia; K29.61 Other gastritis with bleeding; D62 Acute posthemorrhagic anemia; E87.1 Hypo-osmolality and hyponatremia; I50.32 Chronic diastolic (congestive) heart failure; I48.92 Unspecified atrial flutter; N30.00 Acute cystitis without hematuria; M79.672 Pain in left foot; J43.9 Emphysema, unspecified; E55.9 Vitamin D deficiency, unspecified; I48.0 Paroxysmal atrial fibrillation; I99.8 Other disorder of circulatory system; F17.210 Nicotine dependence, cigarettes, uncomplicated; K20.9 Esophagitis, unspecified; E11.65 Type 2 diabetes mellitus with hyperglycemia; K57.30 Diverticulosis of large intestine without perforation or abscess without bleeding; K63.5 Polyp of colon; R65.20 Severe sepsis without septic shock; Z90.49 Acquired absence of other specified parts of digestive tract; Z90.710 Acquired absence of both cervix and uterus; Z84.89 Family history of other specified conditions; Z88.0 Allergy status to penicillin; Z88.8 Allergy status to other drugs, medicaments and biological substances; Z79.899 Other long term (current) drug therapy; Z79.82 Long term (current) use of aspirin; Z79.84 Long term (current) use of oral hypoglycemic drugs; Z71.6 Tobacco abuse counseling; Z79.01 Long term (current) use of anticoagulants

== ENCOUNTER → 2019-07-23 | Outpatient (CLI) | payer MEDICARE ==
[~2019-07-23] MED LIST changes: +ALDACTONE25 MG PO; +CARDIZEM CD180 MG PO; +CIPRO250 MG PO; +FEOSOL325 MG PO; +GLUCOPHAGE500 M1 PO
[2019-07-23 11:32] LABS: HEMATOCRIT 36.7 % (37.0-47.0); HEMOGLOBIN 10.7 g/dl (12.0-16.0); MEAN CELL VOLUME 85.3 fl (81.0-99.0); MEAN CORPUSCULAR HGB 24.9 pg (27.0-31.0); MEAN CORPUSCULAR HGB CONC 29.2 g/dl (33.0-37.0); MEAN PLATELET VOLUME 9.9 fl (9.6-12.3); PLATELET COUNT AUTOMATED 287 10*3/uL (130-400); WHITE BLOOD COUNT 7.1 10*3/uL (4.8-10.8)
[2019-07-23 11:36] LABS: BUN 14 mg/dl (7-24); CHLORIDE 104 mmol/L (98-107); CREATININE 0.69 mg/dL (0.55-1.02); POTASSIUM 4.2 mmol/L (3.5-5.1); SODIUM 138 mmol/L (136-145)
[2019-07-23 12:09] LABS: TOTAL CELLS COUNTED 100 #CELLS
[2019-07-23 12:10] LABS: ACANTHOCYTES FEW; OVALOCYTES FEW; SCHISTOCYTES FEW
[2019-07-23 12:11] LABS: MICROCYTOSIS SLIGHT; PLATELET SUFFICIENCY NORMAL (NORMAL)
== END | disposition home or self-care (01) ==
LOC: RESCLI 02:56
PROVIDERS: Student in an Organized Health Care Education/Training Program
DX: Z09 Encounter for follow-up examination after completed treatment for conditions other than malignant neoplasm (principal); Z12.11 Encounter for screening for malignant neoplasm of colon; I48.91 Unspecified atrial fibrillation; J44.9 Chronic obstructive pulmonary disease, unspecified; E55.9 Vitamin D deficiency, unspecified; I11.0 Hypertensive heart disease with heart failure; I50.9 Heart failure, unspecified; E11.9 Type 2 diabetes mellitus without complications; D62 Acute posthemorrhagic anemia; Z79.899 Other long term (current) drug therapy

== ENCOUNTER → 2019-10-01 | Outpatient (CLI) | payer OTHER, MEDICARE | END | disposition home or self-care (01) | LOC: RESCLI 02:21 | DX: Z12.31 Encounter for screening mammogram for malignant neoplasm of breast (principal); Z12.11 Encounter for screening for malignant neoplasm of colon; Z71.6 Tobacco abuse counseling; I48.91 Unspecified atrial fibrillation; J44.9 Chronic obstructive pulmonary disease, unspecified; E55.9 Vitamin D deficiency, unspecified; I50.30 Unspecified diastolic (congestive) heart failure; Z72.0 Tobacco use; Z87.891 Personal history of nicotine dependence; Z79.899 Other long term (current) drug therapy; Z90.49 Acquired absence of other specified parts of digestive tract; Z90.710 Acquired absence of both cervix and uterus; Z88.0 Allergy status to penicillin; Z88.8 Allergy status to other drugs, medicaments and biological substances ==

== ENCOUNTER → 2020-05-06 | Outpatient (CLI) | payer OTHER | END | disposition home or self-care (01) | LOC: RESCLI 02:06 | PROVIDERS: ATTEND Internal Medicine Nephrology | DX: I48.91 Unspecified atrial fibrillation (principal); J44.9 Chronic obstructive pulmonary disease, unspecified; E55.9 Vitamin D deficiency, unspecified; I50.30 Unspecified diastolic (congestive) heart failure; K21.9 Gastro-esophageal reflux disease without esophagitis; E11.9 Type 2 diabetes mellitus without complications; E61.1 Iron deficiency; F17.200 Nicotine dependence, unspecified, uncomplicated; Z79.84 Long term (current) use of oral hypoglycemic drugs; Z79.899 Other long term (current) drug therapy; Z90.49 Acquired absence of other specified parts of digestive tract; Z98.890 Other specified postprocedural states; Z88.8 Allergy status to other drugs, medicaments and biological substances ==

== ENCOUNTER → 2020-05-08 | Outpatient (CLI) | payer OTHER ==
[2020-05-08 08:47] LABS: BASO % 0.6 % (0.0-1.0); EOS # 0.2 10*3/uL (0.0-0.4); EOS % 3.1 % (1.0-4.0); HEMATOCRIT 41.4 % (37.0-47.0); LYMPH # 1.6 10*3/uL (1.3-4.4); LYMPH % 23.7 % (27.0-41.0); MEAN CELL VOLUME 100.7 fl (81.0-99.0); MEAN CORPUSCULAR HGB 32.8 pg (27.0-31.0); MEAN CORPUSCULAR HGB CONC 32.6 g/dl (33.0-37.0); MEAN PLATELET VOLUME 9.9 fl (9.6-12.3); MONO # 0.8 10*3/uL (0.1-1.0); MONO % 11.2 % (3.0-9.0); NEUT # 4.2 10*3/uL (2.3-7.9); PLATELET COUNT AUTOMATED 201 10*3/uL (130-400); RED BLOOD COUNT 4.11 10*6/uL (4.10-5.10); RED CELL DISTRI WIDTH 13.2 % (0-14.5); WHITE BLOOD COUNT 6.9 10*3/uL (4.8-10.8)
[2020-05-08 09:22] LABS: ALBUMIN 3.5 gm/dl (3.1-4.5); ALKALINE PHOSPHATASE 121 U/L (45-117); BUN 20 mg/dl (7-24); CHLORIDE 106 mmol/L (98-107); CHOLESTEROL 179 mg/dL (<200); CREATININE 0.75 mg/dL (0.55-1.02); HDL CHOLESTEROL 62 mg/dl (40-60); LDL CHOLESTEROL 99 mg/dL (9-159); POTASSIUM 3.8 mmol/L (3.5-5.1); SGOT/AST 20 IU/L (3-35); SGPT/ALT 26 U/L (12-78); SODIUM 139 mmol/L (136-145); TOTAL PROTEIN 7.7 gm/dL (6.4-8.2); TRIGLYCERIDES 92 mg/dl (<150); VLDL CHOLESTEROL 18 mg/dL (6-40)
[2020-05-08 09:54] LABS: VITAMIN D, 25-HYDROXY 81.4 ng/mL (30-100)
== END | disposition home or self-care (01) ==
LOC: LAB 08:16
PROVIDERS: Hospitalist; ATTEND Internal Medicine
DX: I50.30 Unspecified diastolic (congestive) heart failure (principal); E11.9 Type 2 diabetes mellitus without complications; E55.9 Vitamin D deficiency, unspecified; Z79.899 Other long term (current) drug therapy

== ENCOUNTER → 2020-06-12 | Outpatient (CLI) | payer OTHER | END | disposition home or self-care (01) | LOC: RESCLI 04:39 | PROVIDERS: ATTEND Emergency Medicine | DX: E11.9 Type 2 diabetes mellitus without complications (principal); K21.9 Gastro-esophageal reflux disease without esophagitis; I50.30 Unspecified diastolic (congestive) heart failure; J44.9 Chronic obstructive pulmonary disease, unspecified; E55.9 Vitamin D deficiency, unspecified; I48.91 Unspecified atrial fibrillation; S81.811D Laceration without foreign body, right lower leg, subsequent encounter; F17.200 Nicotine dependence, unspecified, uncomplicated; Z79.899 Other long term (current) drug therapy; Z90.49 Acquired absence of other specified parts of digestive tract; Z90.710 Acquired absence of both cervix and uterus; Z88.0 Allergy status to penicillin; X58.XXXD Exposure to other specified factors, subsequent encounter ==

== ENCOUNTER → 2020-12-03 | Outpatient (CLI) | payer OTHER | END | disposition home or self-care (01) | LOC: RESCLI 01:21 | PROVIDERS: ATTEND Internal Medicine Nephrology | DX: I48.91 Unspecified atrial fibrillation (principal); J44.9 Chronic obstructive pulmonary disease, unspecified; E55.9 Vitamin D deficiency, unspecified; I50.30 Unspecified diastolic (congestive) heart failure; E11.9 Type 2 diabetes mellitus without complications; K21.9 Gastro-esophageal reflux disease without esophagitis; Z79.899 Other long term (current) drug therapy; Z88.0 Allergy status to penicillin; Z90.49 Acquired absence of other specified parts of digestive tract; Z90.710 Acquired absence of both cervix and uterus ==

== ENCOUNTER → 2021-03-24 | Outpatient (CLI) | payer OTHER ==
[2021-03-24 15:50] LABS: BASO % 0.6 % (0.0-1.0); EOS # 0.2 10*3/uL (0.0-0.4); EOS % 3.4 % (1.0-4.0); LYMPH # 2.1 10*3/uL (1.3-4.4); LYMPH % 31.8 % (27.0-41.0); MEAN CELL VOLUME 100.9 fl (81.0-99.0); MEAN CORPUSCULAR HGB 32.9 pg (27.0-31.0); MEAN CORPUSCULAR HGB CONC 32.6 g/dl (33.0-37.0); MEAN PLATELET VOLUME 9.8 fl (9.6-12.3); MONO # 0.8 10*3/uL (0.1-1.0); MONO % 12.4 % (3.0-9.0); NEUT # 3.4 10*3/uL (2.3-7.9); NEUT % 51.5 % (47.0-73.0); PLATELET COUNT AUTOMATED 210 10*3/uL (130-400); RED BLOOD COUNT 4.26 10*6/uL (4.10-5.10); WHITE BLOOD COUNT 6.7 10*3/uL (4.8-10.8)
[2021-03-24 16:09] LABS: ALBUMIN 3.5 gm/dl (3.1-4.5); ALKALINE PHOSPHATASE 108 U/L (45-117); BUN 14 mg/dl (7-24); CHLORIDE 100 mmol/L (98-107); CHOLESTEROL 189 mg/dL (<200); CREATININE 0.75 mg/dL (0.55-1.02); LDL CHOLESTEROL 100 mg/dL (9-159); SGOT/AST 17 IU/L (3-35); SGPT/ALT 25 U/L (12-78); SODIUM 136 mmol/L (136-145); TOTAL PROTEIN 7.6 gm/dL (6.4-8.2); TRIGLYCERIDES 153 mg/dl (<150)
[2021-03-24 16:29] LABS: VITAMIN D, 25-HYDROXY 51.8 ng/mL (30-100)
== END | disposition home or self-care (01) ==
LOC: LAB 15:24
PROVIDERS: ATTEND Hospitalist
DX: E11.9 Type 2 diabetes mellitus without complications (principal); E55.9 Vitamin D deficiency, unspecified

== ENCOUNTER → 2021-06-30 | Outpatient (CLI) | payer OTHER | END | disposition home or self-care (01) | LOC: RESCLI 00:50 | PROVIDERS: ATTEND Internal Medicine Nephrology | DX: E11.9 Type 2 diabetes mellitus without complications (principal); J44.9 Chronic obstructive pulmonary disease, unspecified; I48.91 Unspecified atrial fibrillation; I50.30 Unspecified diastolic (congestive) heart failure; K21.9 Gastro-esophageal reflux disease without esophagitis; E55.9 Vitamin D deficiency, unspecified ==

== ENCOUNTER → 2021-12-08 | Outpatient (CLI) | payer OTHER ==
[2021-12-08 16:00] LABS: BASO % 0.4 % (0.0-1.0); EOS # 0.2 10*3/uL (0.0-0.4); HEMATOCRIT 43.9 % (37.0-47.0); LYMPH # 2.2 10*3/uL (1.3-4.4); LYMPH % 27.4 % (27.0-41.0); MEAN CELL VOLUME 99.5 fl (81.0-99.0); MEAN CORPUSCULAR HGB 33.1 pg (27.0-31.0); MEAN CORPUSCULAR HGB CONC 33.3 g/dl (33.0-37.0); MEAN PLATELET VOLUME 9.5 fl (9.6-12.3); MONO # 0.9 10*3/uL (0.1-1.0); MONO % 10.7 % (3.0-9.0); NEUT # 4.7 10*3/uL (2.3-7.9); NEUT % 59.1 % (47.0-73.0); PLATELET COUNT AUTOMATED 216 10*3/uL (130-400); RED BLOOD COUNT 4.41 10*6/uL (4.10-5.10); RED CELL DISTRI WIDTH 12.9 % (0-14.5)
[2021-12-08 16:14] LABS: ALKALINE PHOSPHATASE 102 U/L (45-117); BUN 18 mg/dl (7-24); CHLORIDE 102 mmol/L (98-107); CHOLESTEROL 186 mg/dL (<200); CREATININE 0.78 mg/dL (0.55-1.02); LDL CHOLESTEROL 91 mg/dL (9-159); POTASSIUM 3.8 mmol/L (3.5-5.1); SGOT/AST 17 IU/L (3-35); SGPT/ALT 21 U/L (12-78); SODIUM 138 mmol/L (136-145); TOTAL PROTEIN 7.9 gm/dL (6.4-8.2); TRIGLYCERIDES 175 mg/dl (<150)
== END | disposition home or self-care (01) ==
LOC: LAB 15:38
PROVIDERS: Hospitalist; ATTEND Internal Medicine Nephrology
DX: E11.9 Type 2 diabetes mellitus without complications (principal); I50.30 Unspecified diastolic (congestive) heart failure; E55.9 Vitamin D deficiency, unspecified

== ENCOUNTER → 2021-12-08 | Outpatient (CLI) | payer OTHER | END | disposition home or self-care (01) | LOC: RESCLI 02:58 | PROVIDERS: ATTEND Internal Medicine Nephrology | DX: I48.91 Unspecified atrial fibrillation (principal); I50.30 Unspecified diastolic (congestive) heart failure; K21.9 Gastro-esophageal reflux disease without esophagitis; J44.9 Chronic obstructive pulmonary disease, unspecified; E11.9 Type 2 diabetes mellitus without complications; E55.9 Vitamin D deficiency, unspecified; Z79.899 Other long term (current) drug therapy ==

== ENCOUNTER → 2022-04-11 | Outpatient (CLI) | payer OTHER | END | disposition home or self-care (01) | LOC: RESCLI 01:06 | PROVIDERS: ATTEND Internal Medicine | DX: E11.9 Type 2 diabetes mellitus without complications (principal); I50.30 Unspecified diastolic (congestive) heart failure; I11.0 Hypertensive heart disease with heart failure; E61.1 Iron deficiency; I48.91 Unspecified atrial fibrillation; E56.9 Vitamin deficiency, unspecified; J44.9 Chronic obstructive pulmonary disease, unspecified; M54.30 Sciatica, unspecified side; Z71.6 Tobacco abuse counseling; E78.1 Pure hyperglyceridemia; R63.6 Underweight; E55.9 Vitamin D deficiency, unspecified; Z79.899 Other long term (current) drug therapy; Z79.82 Long term (current) use of aspirin; Z79.01 Long term (current) use of anticoagulants; Z88.0 Allergy status to penicillin; Z88.8 Allergy status to other drugs, medicaments and biological substances; Z90.49 Acquired absence of other specified parts of digestive tract; Z90.710 Acquired absence of both cervix and uterus ==

== ENCOUNTER → 2022-06-30 | Outpatient (CLI) | payer OTHER | END | disposition home or self-care (01) | LOC: LAB 13:31 | PROVIDERS: ATTEND Internal Medicine | DX: E11.9 Type 2 diabetes mellitus without complications (principal) ==

== ENCOUNTER 2022-12-04 17:53 | Emergency (ER) | payer OTHER ==
[~2022-12-04] VITALS: Ht 154.9 cm; Wt 47.6 kg
[2022-12-04 18:41] LABS: BASO % 0.5 % (0.0-1.0); EOS # 0.1 10*3/uL (0.0-0.4); EOS % 2.1 % (1.0-4.0); HEMATOCRIT 32.8 % (37.0-47.0); LYMPH # 1.3 10*3/uL (1.3-4.4); LYMPH % 19.9 % (27.0-41.0); MEAN CELL VOLUME 83.7 fl (81.0-99.0); MEAN CORPUSCULAR HGB 25.3 pg (27.0-31.0); MEAN CORPUSCULAR HGB CONC 30.2 g/dl (33.0-37.0); MEAN PLATELET VOLUME 9.2 fl (9.6-12.3); MONO # 0.9 10*3/uL (0.1-1.0); NEUT % 63.3 % (47.0-73.0); PLATELET COUNT AUTOMATED 216 10*3/uL (130-400); RED BLOOD COUNT 3.92 10*6/uL (4.10-5.10); RED CELL DISTRI WIDTH 15.6 % (0-14.5); WHITE BLOOD COUNT 6.3 10*3/uL (4.8-10.8)
[2022-12-04 18:52] LABS: ACT PARTIAL THROMBO TIME 32.5 SECONDS (20.0-32.1); INTERNATIONAL NORM RATIO 1.2 (2.0-3.5)
[2022-12-04 18:56] LABS: ALKALINE PHOSPHATASE 122 U/L (46-116); BUN 16 mg/dl (9-23); CHLORIDE 102 mmol/L (98-107); POTASSIUM 3.5 mmol/L (3.4-5.1); SGPT/ALT 25 U/L (10-49); TOTAL PROTEIN 6.6 gm/dL (6.0-8.0)
[2022-12-04 20:21] LABS: BILIRUBIN Negative (Negative); BLOOD Negative (Negative); CLARITY Clear (Clear); COLOR Yellow (Yellow); GLUCOSE Negative (Negative); KETONE Negative (Negative); LEUKO ESTERASE Negative (Negative); NITRITE Negative (Negative)
[2022-12-04 20:27] LABS: BACTERIA 3+; EPITHELIAL CELLS 0-2; WBC 0-2 wbc/hpf (0-5)
== END 2022-12-04 21:50 | disposition home or self-care (01) ==
LOC: ED 17:53
PROVIDERS: Emergency Medicine
DX: M54.31 Sciatica, right side (principal); R73.9 Hyperglycemia, unspecified; R53.1 Weakness; I48.91 Unspecified atrial fibrillation; Z88.0 Allergy status to penicillin; Z88.8 Allergy status to other drugs, medicaments and biological substances; Z90.49 Acquired absence of other specified parts of digestive tract; Z90.710 Acquired absence of both cervix and uterus; F17.200 Nicotine dependence, unspecified, uncomplicated

== ENCOUNTER 2022-12-30 16:51 | Inpatient (IN) | payer OTHER ==
[~2022-12-30] VITALS: Ht 154.9 cm; Wt 45.4 kg
[2022-12-30 16:57] VITALS: BP 92/56
[2022-12-30 17:45] LABS: BASO % 0.4 % (0.0-1.0); EOS % 0.3 % (1.0-4.0); HEMATOCRIT 28.8 % (37.0-47.0); LYMPH # 1.2 10*3/uL (1.3-4.4); LYMPH % 12.6 % (27.0-41.0); MEAN CORPUSCULAR HGB 23.9 pg (27.0-31.0); MEAN CORPUSCULAR HGB CONC 29.9 g/dl (33.0-37.0); MEAN PLATELET VOLUME 9.3 fl (9.6-12.3); MONO # 0.9 10*3/uL (0.1-1.0); MONO % 10.1 % (3.0-9.0); NEUT # 7.1 10*3/uL (2.3-7.9); NEUT % 76.2 % (47.0-73.0); PLATELET COUNT AUTOMATED 270 10*3/uL (130-400); WHITE BLOOD COUNT 9.3 10*3/uL (4.8-10.8)
[2022-12-30 17:48] LABS: BILIRUBIN Negative (Negative); BLOOD Negative (Negative); CLARITY Clear (Clear); COLOR Yellow (Yellow); GLUCOSE Negative (Negative); KETONE Negative (Negative); LEUKO ESTERASE Negative (Negative); NITRITE Negative (Negative); SPECIFIC GRAVITY <= 1.005 (1.001-1.030); UROBILINOGEN 0.2 E.U./dl (0.0-1.0)
[2022-12-30 17:56] LABS: ACT PARTIAL THROMBO TIME 31.7 SECONDS (20.0-32.1); INTERNATIONAL NORM RATIO 1.3 (2.0-3.5)
[2022-12-30 18:03] LABS: ALKALINE PHOSPHATASE 163 U/L (46-116); BUN 16 mg/dl (9-23); CHLORIDE 99 mmol/L (98-107); POTASSIUM 3.6 mmol/L (3.4-5.1); SGPT/ALT 10 U/L (10-49); TOTAL PROTEIN 7.2 gm/dL (6.0-8.0)
[2022-12-30 18:06] LABS: BACTERIA TRACE; RBC 0-2 rbc/hpf (0-2); WBC 0-2 wbc/hpf (0-5)
[2022-12-30 20:30] VITALS: BP 90/59
[2022-12-31] VITALS: BP 91/49
[2022-12-31 06:38] LABS: BASO % 0.3 % (0.0-1.0); EOS # 0.1 10*3/uL (0.0-0.4); EOS % 0.7 % (1.0-4.0); HEMATOCRIT 28.1 % (37.0-47.0); LYMPH # 0.9 10*3/uL (1.3-4.4); LYMPH % 12.5 % (27.0-41.0); MEAN CELL VOLUME 80.1 fl (81.0-99.0); MEAN CORPUSCULAR HGB 22.8 pg (27.0-31.0); MEAN CORPUSCULAR HGB CONC 28.5 g/dl (33.0-37.0); MEAN PLATELET VOLUME 9.5 fl (9.6-12.3); MONO # 1.1 10*3/uL (0.1-1.0); MONO % 14.8 % (3.0-9.0); NEUT # 5.3 10*3/uL (2.3-7.9); NEUT % 71.3 % (47.0-73.0); PLATELET COUNT AUTOMATED 243 10*3/uL (130-400); RED BLOOD COUNT 3.51 10*6/uL (4.10-5.10); RED CELL DISTRI WIDTH 16.2 % (0-14.5); WHITE BLOOD COUNT 7.4 10*3/uL (4.8-10.8)
[2022-12-31 07:51] LABS: ALKALINE PHOSPHATASE 137 U/L (46-116); BUN 16 mg/dl (9-23); CHLORIDE 103 mmol/L (98-107); CHOLESTEROL 105 mg/dL (<200); LDL CHOLESTEROL 50 mg/dL (9-159); POTASSIUM 3.4 mmol/L (3.4-5.1); THYROID STIM HORMONE (HS) 3.335 uIU/ml (0.550-4.780); TRIGLYCERIDES 89 mg/dl (<150)
[2022-12-31 07:55] LABS: SGPT/ALT < 7 U/L (10-49)
[2022-12-31 08:00] VITALS: BP 98/60
[2022-12-31 08:30] LABS: VITAMIN D, 25-HYDROXY 88.8 ng/mL (30-100)
[2022-12-31 12:00] VITALS: BP 92/64
[2022-12-31 16:00] VITALS: BP 103/65
[2022-12-31 20:00] VITALS: BP 106/69
[2023-01-01] VITALS: BP 98/67
[2023-01-01 06:24] LABS: BASO % 0.4 % (0.0-1.0); EOS # 0.1 10*3/uL (0.0-0.4); EOS % 0.9 % (1.0-4.0); HEMATOCRIT 29.4 % (37.0-47.0); LYMPH # 1.1 10*3/uL (1.3-4.4); LYMPH % 15.5 % (27.0-41.0); MEAN CELL VOLUME 79.7 fl (81.0-99.0); MEAN CORPUSCULAR HGB 23.3 pg (27.0-31.0); MEAN CORPUSCULAR HGB CONC 29.3 g/dl (33.0-37.0); MEAN PLATELET VOLUME 9.7 fl (9.6-12.3); MONO # 0.9 10*3/uL (0.1-1.0); NEUT # 4.7 10*3/uL (2.3-7.9); NEUT % 69.6 % (47.0-73.0); PLATELET COUNT AUTOMATED 249 10*3/uL (130-400); RED BLOOD COUNT 3.69 10*6/uL (4.10-5.10); RED CELL DISTRI WIDTH 16.1 % (0-14.5); WHITE BLOOD COUNT 6.8 10*3/uL (4.8-10.8)
[2023-01-01 07:14] LABS: BUN 13 mg/dl (9-23); CHLORIDE 103 mmol/L (98-107); POTASSIUM 3.6 mmol/L (3.4-5.1)
[2023-01-01 08:00] VITALS: BP 96/62
[2023-01-01] MEDS ORDERED: LEVOFLOXACIN750 M2 PO (10:31)
[2023-01-01] MEDS ORDERED: CLINDAMYCIN HC300 MG PO (10:31)
== END 2023-01-01 12:40 | disposition home or self-care (01) | DRG 602 ==
LOC: ED 16:51 → EDHOLD 18:28 → 5E 19:14
PROVIDERS: Internal Medicine; Physician Assistant; Student in an Organized Health Care Education/Training Program; ADMIT Internal Medicine; ATTEND Internal Medicine
DX: L03.115 Cellulitis of right lower limb (principal); J18.9 Pneumonia, unspecified organism; E44.0 Moderate protein-calorie malnutrition; I50.32 Chronic diastolic (congestive) heart failure; Z68.1 Body mass index [BMI] 19.9 or less, adult; D50.9 Iron deficiency anemia, unspecified; J44.9 Chronic obstructive pulmonary disease, unspecified; I48.91 Unspecified atrial fibrillation; F17.210 Nicotine dependence, cigarettes, uncomplicated; E11.65 Type 2 diabetes mellitus with hyperglycemia; M53.86 Other specified dorsopathies, lumbar region; Z71.6 Tobacco abuse counseling; W54.8XXA Other contact with dog, initial encounter; Z90.710 Acquired absence of both cervix and uterus; Z90.49 Acquired absence of other specified parts of digestive tract; Z88.0 Allergy status to penicillin; Z88.8 Allergy status to other drugs, medicaments and biological substances; Z79.51 Long term (current) use of inhaled steroids; Z79.82 Long term (current) use of aspirin; Z79.899 Other long term (current) drug therapy; Z79.84 Long term (current) use of oral hypoglycemic drugs

== ENCOUNTER → 2023-01-03 | Outpatient (CLI) | payer OTHER ==
[~2023-01-03] MED LIST changes: +CLINDAMYCIN HC300 MG PO; +LEVOFLOXACIN750 M2 PO
== END | disposition home or self-care (01) ==
LOC: WOUNDCARE 01:42
PROVIDERS: ATTEND Nurse Practitioner Family
DX: S81.801A Unspecified open wound, right lower leg, initial encounter (principal); S91.301A Unspecified open wound, right foot, initial encounter; L03.90 Cellulitis, unspecified; I50.9 Heart failure, unspecified; E11.9 Type 2 diabetes mellitus without complications; I48.91 Unspecified atrial fibrillation; J44.9 Chronic obstructive pulmonary disease, unspecified; F17.290 Nicotine dependence, other tobacco product, uncomplicated; Z90.710 Acquired absence of both cervix and uterus; W54.8XXA Other contact with dog, initial encounter; Y93.89 Activity, other specified; Y92.89 Other specified places as the place of occurrence of the external cause; Y99.8 Other external cause status

== ENCOUNTER → 2023-01-04 | Outpatient (CLI) | payer OTHER | END | disposition home or self-care (01) | LOC: RESCLI 14:10 | PROVIDERS: ATTEND Internal Medicine | DX: L03.115 Cellulitis of right lower limb (principal); E11.9 Type 2 diabetes mellitus without complications; E55.9 Vitamin D deficiency, unspecified; I48.91 Unspecified atrial fibrillation; J44.9 Chronic obstructive pulmonary disease, unspecified; J18.9 Pneumonia, unspecified organism; I50.30 Unspecified diastolic (congestive) heart failure; F17.210 Nicotine dependence, cigarettes, uncomplicated; Z90.49 Acquired absence of other specified parts of digestive tract; Z98.890 Other specified postprocedural states; Z72.89 Other problems related to lifestyle; Z88.0 Allergy status to penicillin; Z88.8 Allergy status to other drugs, medicaments and biological substances; Z79.84 Long term (current) use of oral hypoglycemic drugs; Z79.82 Long term (current) use of aspirin; Z79.899 Other long term (current) drug therapy ==

== ENCOUNTER → 2023-02-16 | Outpatient (CLI) | payer OTHER ==
[~2023-02-16] MED LIST changes: +ESOMEPRAZOLE MA40 M1 PO; +ISO GENTAM120 MG/100 IV; +METFORMIN HYDR500 MG PO; +MIDODRINE HCL5 M1 PO; +SPIRIVA18 MCG PO; +VITAMIN B121000 MC1 PO; +VITAMIN E450 M1 PO
== END | disposition home or self-care (01) ==
LOC: RESCLI 01:41
PROVIDERS: ATTEND Internal Medicine
DX: I50.30 Unspecified diastolic (congestive) heart failure (principal); E55.9 Vitamin D deficiency, unspecified; E56.9 Vitamin deficiency, unspecified; J44.9 Chronic obstructive pulmonary disease, unspecified; I48.91 Unspecified atrial fibrillation; E11.9 Type 2 diabetes mellitus without complications; I95.9 Hypotension, unspecified; K21.9 Gastro-esophageal reflux disease without esophagitis; Z79.899 Other long term (current) drug therapy; Z90.49 Acquired absence of other specified parts of digestive tract

== ENCOUNTER → 2023-02-23 | Outpatient (CLI) | payer OTHER | END | disposition home or self-care (01) | LOC: RESCLI 12:37 | PROVIDERS: ATTEND Internal Medicine | DX: E55.9 Vitamin D deficiency, unspecified (principal); I50.30 Unspecified diastolic (congestive) heart failure; E56.9 Vitamin deficiency, unspecified; J44.9 Chronic obstructive pulmonary disease, unspecified; I48.91 Unspecified atrial fibrillation; I95.9 Hypotension, unspecified; K21.9 Gastro-esophageal reflux disease without esophagitis; Z88.0 Allergy status to penicillin; Z88.8 Allergy status to other drugs, medicaments and biological substances; Z98.890 Other specified postprocedural states; Z79.899 Other long term (current) drug therapy ==

== ENCOUNTER → 2023-04-26 | Outpatient (CLI) | payer OTHER ==
[~2023-04-26] MED LIST changes: +DIGOXIN125 MCG PO; +FUROSEMIDE40 MG PO
== END | disposition home or self-care (01) ==
LOC: RESCLI 02:29
PROVIDERS: ATTEND Family Medicine
DX: J44.9 Chronic obstructive pulmonary disease, unspecified (principal); I48.91 Unspecified atrial fibrillation; E55.9 Vitamin D deficiency, unspecified; E11.9 Type 2 diabetes mellitus without complications; M54.30 Sciatica, unspecified side; Z71.6 Tobacco abuse counseling; E78.1 Pure hyperglyceridemia; R63.6 Underweight; F17.210 Nicotine dependence, cigarettes, uncomplicated; L03.115 Cellulitis of right lower limb; J18.9 Pneumonia, unspecified organism; K21.9 Gastro-esophageal reflux disease without esophagitis; I50.30 Unspecified diastolic (congestive) heart failure; G47.00 Insomnia, unspecified; M54.9 Dorsalgia, unspecified; M94.9 Disorder of cartilage, unspecified; Z98.890 Other specified postprocedural states; Z90.710 Acquired absence of both cervix and uterus; Z90.49 Acquired absence of other specified parts of digestive tract; Z88.0 Allergy status to penicillin; Z88.8 Allergy status to other drugs, medicaments and biological substances; Z79.899 Other long term (current) drug therapy